=== PATIENT | male | born 1980 | race Caucasian/White ===

== ENCOUNTER 2023-12-21 07:05 | Day surgery (SDC) | payer BC ==
[~2023-12-21 07:05] MED LIST: ACETAMINOPHEN TAB 500 MG TAB PO PRN; DEXAMETHASONE SOD PHOSPHATE 4 MG/ML 1 ML VIAL IV ONE; HEPARIN SODIUM,PORCINE 5,000 UNIT/ML 1 ML VIAL SQ PRN; HYDROmorphone 0.5 MG/0.5 ML SYRINGE IVP PRN; LIDOCAINE 1% (10MG/ML) FOR IV START INTRADERMA PRN; MIDAZOLAM 2 MG/2 ML VIAL IV PRN; ONDANSETRON 4 MG/2 ML VIAL IVP ONE
[2023-12-21] MEDS: LACTATED RINGERS 1,000 ML IV SCH (08:05)
[2023-12-21] MEDS: ACETAMINOPHEN TAB 500 MG TAB PO ONE (08:18)
[2023-12-21] MEDS: DEXAMETHASONE SOD PHOSPHATE 4 MG/ML 1 ML VIAL IVP ONE (08:18)
[2023-12-21] MEDS: ONDANSETRON 4 MG/2 ML VIAL IVP ONE (08:18)
[2023-12-21] MEDS: MIDAZOLAM 2 MG/2 ML VIAL IVP ONE (08:26)
--- NOTE | 2023-12-21 08:42 | P.ANPRN ---
Procedure Note - Anesthesia - Nerve Block Performed Bilateral Erector Spinae Single Time Out Performed: Yes Date of Procedure: 12/21/23 Procedure Start Time: : Procedure Stop Time: :36 Location of Patient: PreOp Indication: Acute Post-Operative Pain, Analgesia, Requested by Surgeon Sedation Type: Sedate with meaningful contact maintained Preparation: Sterile Prep Position: Prone Needle Types: Pajunk Needle Gauge: 21 Ultrasound used to visualize needle placement: Yes Ultrasound used to observe medication spread: Yes Injectate: 0.5% Ropivacaine (see comment for volume) (Ropiv 20ml+decadron 4mg---Each side) Narrative: T 10 level Blood Aspirated: No Pain Paresthesia on Injection Noted: No Resistance on Injection: Normal Image Stored and Saved: Yes Events: Uneventful and Well Tolerated
[2023-12-21] MEDS: HEPARIN SODIUM,PORCINE 5,000 UNIT/ML 1 ML VIAL SQ ONE (08:45)
[2023-12-21] MEDS ORDERED: ROCURONIUM 10 MG/ML (5 ML VIAL) IV ONE (08:59)
[2023-12-21] MEDS ORDERED: SUCCINYLCHOLINE CHLORIDE 200 MG/10 ML VIAL IV ONE (08:59)
[2023-12-21] MEDS ORDERED: LIDOCAINE 1% INJ 10MG/ML (20 ML MDV) ONE (08:59)
[2023-12-21] MEDS ORDERED: DEXAMETHASONE SOD PHOSPHATE 4 MG/ML 1 ML VIAL ONE (08:59)
[2023-12-21] MEDS ORDERED: KETOROLAC 15 MG/ML 1 ML VIAL ONE (08:59)
[2023-12-21] MEDS ORDERED: PROPOFOL 10 MG/ML 20 ML VIAL IV ONE (08:59)
[2023-12-21] MEDS ORDERED: GLYCOPYRROLATE 0.2 MG/ML 2 ML VIAL ONE (08:59)
[2023-12-21] MEDS ORDERED: NEOSTIGMINE 1 MG/ML 10 ML VIAL ONE (08:59)
[2023-12-21] MEDS ORDERED: fentaNYL (PF) 50 MCG/ML 2 ML AMP ONE (08:59)
[2023-12-21] MEDS ORDERED: ROPIVACAINE 5 MG/ML 30 ML VIAL ONE (08:59)
[2023-12-21] MEDS ORDERED: MIDAZOLAM 2 MG/2 ML VIAL ONE (08:59)
[2023-12-21] MEDS: BUPIVACAINE (PF) 0.25% 30 ML VIAL SQ ONE ×3 (09:15→09:21)
[2023-12-21 10:45] VITALS: TEMP 97
[2023-12-21] MEDS: HYDROmorphone 0.5 MG/0.5 ML SYRINGE IVP ONE (10:48)
--- NOTE | 2023-12-21 10:53 | P.OP ---
Date of Procedure: 12/21/23 Procedure(s) Performed: PREOPERATIVE DIAGNOSIS: Incarcerated umbilical hernia POSTOPERATIVE DIAGNOSIS: Incarcerated umbilical and ventral hernia PROCEDURE: Open repair incarcerated ventral and umbilical hernia with mesh SURGEON: Dr. Dubose ANESTHESIA: General OPERATIVE PROCEDURE DETAILS: The patient was placed in the operating table in the supine position. A curvilinear supraumbilical incision was made using the scalpel. The subcutaneous tissues were dissected bluntly and with cautery. The hernia sac was identified. The hernia sac was followed down to the fascia. The main palpable incarcerated hernia actually appeared to represent a ventral hernia. A portion of the hernia was excised. The remainder was reduced into the preperitoneal space. The umbilical tissue was then elevated off the fascia. In doing so the umbilical hernia was then noted. This was smaller in size. The 2 defects were connected into 1 as there was only a very thin bridge of fascia between the 2. Our combined fascial opening now measured 3.5 x 2 cm. The 6.4 cm mesh was utilized. The preperitoneal space was carefully dissected using blunt dissection and cautery. The 6.4 cm ventral ex mesh was placed beneath the fascia and sutured in place using trans-fascial 0 Ethibond sutures. The defect was closed using interrupted vest over pants 0 Ethibond mattress sutures. The subcutaneous tissues were reapproximated using inverted 2-0 & 3-0 Vicryl sutures. The umbilicus was tacked back down to the fascia using a 2-0 Vicryl suture. The skin was closed using 4-0 Monocryl sutures. Skin glue and sterile dressings were then applied. HERNIA CHARACTERISTICS: Length: 3.5 cm Width: 2 cm Type: Incarcerated ventral/umbilical TYPE OF MESH USED: 6.4 cm ventral X LOCATION OF MESH: [place] FIXATION: 0 Ethibond PREOPERATIVE DISCUSSION ON SMOKING CESSASTION: Yes PREOPERATIVE DISCUSSION ON MORBID OBESITY: Yes PREOPERATIVE DISCUSSION ON APPROPRIATE USE OF NARCOTIC USE: Yes PREOPERATIVE EDUCATION: Multi Modal, Smoking Cessation and Weight Loss with BMI over 35. DISPOSITION: Stable to recovery room
[2023-12-21] MEDS: LACTATED RINGERS 1,000 ML IV ONE (10:56)
[2023-12-21 11:56] VITALS: BP 104/68; PULSE 81; RESP 17
[2023-12-21] MEDS ORDERED: ACETAMINOPHEN TAB 325 MG TAB PO SCH (14:00)
[2023-12-21] MEDS ORDERED: IBUPROFEN 600 MG TAB PO SCH (17:00)
== END 2023-12-21 12:17 | disposition home or self-care (01) ==
LOC: OR 07:05
PROVIDERS: ATTEND Surgery
DX: K42.0 Umbilical hernia with obstruction, without gangrene (principal); K43.6 Other and unspecified ventral hernia with obstruction, without gangrene; Z87.891 Personal history of nicotine dependence; Z98.890 Other specified postprocedural states
CPT/HCPCS: 64999; 88302; 49594; C1781; J2250; J0330; J1644; J1100; J2710; J0690; J2405; J2001; J3010; J2795; J1885; J2704; J1170; J0665